=== PATIENT | male | born 1990 | race Caucasian/White ===

== ENCOUNTER → 2016-11-19 | Outpatient (CLI) | payer OTHER ==
--- NOTE | 2016-11-19 13:39 | Diagnostic Imaging Report ---
PROCEDURE: US Abdomen, limited. TECHNIQUE: Multiple real-time grayscale images were obtained over the abdomen in various projections. INDICATION: Infraumbilical left lower quadrant pain. Pop sensation with lifting. FINDINGS: Sonographic surveillance of the abdominal wall in the region of clinical complaint fails to show identifiable defect, fatty or viscus herniation. IMPRESSION: No abdominal wall defect or hernia sonographically apparent. Dictated by: Dictated on workstation # [id number]
== END ==
LOC: RAD 07:50
PROVIDERS: ATTEND Nurse Practitioner Family
DX: R10.32 Left lower quadrant pain (principal); R19.09 Other intra-abdominal and pelvic swelling, mass and lump
CPT/HCPCS: 76705